=== PATIENT | male | born 1960 | race Caucasian/White ===

== ENCOUNTER → 2019-09-30 | Outpatient (CLI) | payer BC ==
--- NOTE | 2019-09-30 10:24 | MR ---
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 FINDINGS: There is abnormal signal along the intracanalicular internal auditory canal on the right ex tending to a minimal extracanalicular position measuring approximately 9 mm x 7 mm x 6 mm in cephalad to caudal dimension. Diffusion weighted images demonstrate no evidence of a recent infarct or other diffusion abnormality. There is no extra-axial fluid collection or significant white matter signal a bnormality. The ventricular system and cisternal spaces are normal in size and appearance. The brai n volume is age appropriate. Midline structures demonstrate essentially normal morphology, minimal inferior cerebellar tonsillar e ctopia noted. The craniocervical junction appears within normal limits. Post contrast images demons trates enhancement of the mass along the internal auditory canal on the right. The dural venous sinus es appear patent. The visualized sinuses are remarkable for mucoperiosteal thickening maxillary sinus es, ethmoid air cells, and the globes are intact. There are inflammatory changes present within the m astoid air cells on the left. IMPRESSION: Right-sided acoustic neuroma as described. Mild inflammatory changes mastoid air cells on the left, minimal sinus disease. Minimal inferior cerebellar tonsillar ectopia.
== END | disposition home or self-care (01) ==
LOC: RADMRIMAIN 08:37
PROVIDERS: ATTEND Otolaryngology
DX: D33.3 Benign neoplasm of cranial nerves (principal); H70.892 Other mastoiditis and related conditions, left ear; Q04.8 Other specified congenital malformations of brain; H91.91 Unspecified hearing loss, right ear
CPT/HCPCS: 70553; A9585

== ENCOUNTER → 2020-10-19 | Outpatient (CLI) | payer BC ==
--- NOTE | 2020-10-20 09:57 | US ---
EXAMINATION TYPE: US scrotum with doppler. Grayscale and color Doppler Duplex imaging performed of anali lamar scrotum. DATE OF EXAM: 10/19/2020 COMPARISON: NONE CLINICAL HISTORY: R36.1 Hematospermia. EXAM MEASUREMENTS: TESTICLES: Right Testicle: 4.3 x 1.9 x 3.5 cm Left Testicle: 3.8 x 2.1 x 3.3 cm EPIDIDYMIS HEAD: Right Epididymis: 0.7 x 0.7 cm Left Epididymis: 0.7 x 0.8 cm Doppler performed to assess for testicular vascularity; good bilateral color flow and waveforms are s een. There is no evidence of testicular torsion. Presence of hydroceles: small amount of fluid surrounding both testicles. Presence of varicoceles: Tubular structures posterior to left testicle that have increased flow with valsalva maneuver. IMPRESSION: 1. Small hydroceles and varicoceles are noted.
== END | disposition home or self-care (01) ==
LOC: RADUSWWP 16:40
PROVIDERS: ATTEND Family Medicine
DX: I86.1 Scrotal varices (principal); N43.3 Hydrocele, unspecified; R36.1 Hematospermia
CPT/HCPCS: 76870; 93975

== ENCOUNTER → 2021-11-23 | Outpatient (CLI) | payer BC ==
--- NOTE | 2021-11-24 07:46 | CT ---
EXAMINATION TYPE: CT urogram wo/w con DATE OF EXAM: 11/23/2021 COMPARISON: None HISTORY: hematuria CT DLP: 4417.8 mGycm CONTRAST: Performed and without and with IV Contrast, patient injected with 80cc mL of Isovue 370. CT Urography was performed with unenhanced followed by enhanced images of the kidneys, ureters and ur inary bladder. Delayed images were obtained. 3d reconstruction was perfromed at a separate work sta tion. FINDINGS: KIDNEYS/BLADDER: No hydronephrosis. No nephrolithiasis. No distinct renal mass. Urinary bladder gr ossly unremarkable. LUNG BASES-: No visible nodule. No infiltrate. Moderate sized fixed hiatal hernia noted. LIVER/GB: The gallbladder is surgically absent. No space occupying hepatic lesion. Biliary tree is of normal caliber. PANCREAS: No inflammation. No distinct mass. SPLEEN: No splenic enlargement. No lesion seen. ADRENALS: No nodule. No thickening. BOWEL: Normal appendix. Normal bowel caliber. No inflammation. GENITAL ORGANS: No gross abnormality. LYMPH NODES: No greater than 1cm abdominal or pelvic lymph nodes are appreciated. AORTA: No significant abnormality. OSSEOUS STRUCTURES: No significant abnormality is seen. OTHER: No significant additional abnormality is seen. IMPRESSION: 1. No significant abnormality to account for the patient's symptoms.
== END | disposition home or self-care (01) ==
LOC: RADCTMAIN 15:42
PROVIDERS: ATTEND Urology
DX: R31.0 Gross hematuria (principal)
CPT/HCPCS: 82565; 84520; 74178; 36415; 74400; Q9967

== ENCOUNTER 2022-03-26 08:12 | Observation (INO) | payer BC ==
[2022-03-26] MEDS ORDERED: SODIUM CHLORIDE 0.9% 1,000 ML IV STA (08:13)
[2022-03-26] MEDS ORDERED: SODIUM CHLORIDE 0.9% 500 ML 500 ML IV STA (08:13)
[2022-03-26] MEDS ORDERED: KETOROLAC 15 MG/ML 1 ML VIAL IVP STA (08:13)
[2022-03-26] MEDS ORDERED: HYDROmorphone 0.5 MG/0.5 ML SYRINGE IVP STA ×2 (08:13→08:57)
[2022-03-26] MEDS ORDERED: ONDANSETRON 4 MG/2 ML VIAL IVP STA (08:13)
[2022-03-26 08:54] LABS: Basophils % (A) 0 %; Eosinophils # (A) 0.2 k/uL (0-0.7); Eosinophils % (A) 3 %; HGB 16.1 gm/dL (13.0-17.5); Lymphocytes # (A) 1.2 k/uL (1.0-4.8); Lymphocytes % (A) 18 %; MCH 32.1 pg (25.0-35.0); MCHC 33.6 g/dL (31.0-37.0); MCV 95.4 fL (80.0-100.0); Mean Platelet Volume 7.6; Monocytes # (A) 0.2 k/uL (0-1.0); Monocytes % (A) 3 %; Neutrophils % (A) 74 %; Platelet Count 214 k/uL (150-450); RBC 5.03 m/uL (4.30-5.90); RDW 14.2 % (11.5-15.5); WBC 6.8 k/uL (3.8-10.6)
--- NOTE | 2022-03-26 08:57 | ED ---
General Adult HPI - General Stated complaint: poss kidney stones Time Seen by Provider: 03/26/22 08:13 Source: patient, RN notes reviewed Mode of arrival: ambulatory Limitations: no limitations - History of Present Illness Initial comments: 61-year-old male presents emergency Department chief complaint of severe right- sided abdominal pain. Patient was diagnosed with 6.9 mm kidney stone yesterday. Patient is unable pass a stone he's been taking [place] at home on alleviated wit h his pain. Patient's had minimal nausea no vomiting no dysuria no hematuria noted. No diarrhea no constipation. Patient states he had a history kidney stone of years ago. Patient states she's been taking all his medications as directed with no improvement of symptoms. - Related Data Home Medications Medication Instructions Recorded Confirmed Tamsulosin HCl [Flomax] 0.4 mg PO DAILY 05/01/14 09/11/16 Levothyroxine Sodium [Synthroid] 150 mcg PO DAILY 09/11/16 09/11/16 Losartan Potassium 100 mg PO DAILY 09/11/16 09/11/16 Omeprazole [PriLOSEC] 40 mg PO DAILY 09/11/16 09/11/16 Previous Rx's Medication Instructions Recorded Ciprofloxacin HCl [Cipro] 500 mg PO Q12HR #20 tablet 09/11/16 Allergies Allergy/AdvReac Type Severity Reaction Status Date / Time hydroxychloroquine sulfate Allergy Rash/Hives Verified 03/26/22 08:16 [From Plaquenil] Review of Systems ROS Statement: Those systems with pertinent positive or pertinent negative responses have been documented in the HPI. ROS Other: All systems not noted in ROS Statement are negative. Past Medical History Past Medical History: GERD/Reflux, Hypertension, Renal Disease, Thyroid Disorder Additional Past Medical History / Comment(s): sarcoidosis, kidney failure, kidney stones History of Any Multi-Drug Resistant Organisms: None Reported Past Surgical History: Appendectomy, Cholecystectomy, Hernia Repair Additional Past Surgical History / Comment(s): acl, Lasix surgery of the right eye Past Psychological History: No Psychological Hx Reported Smoking Status: Never smoker Past Alcohol Use History: Occasional Past Drug Use History: None Reported General Exam Limitations: no limitations General appearance: alert, in no apparent distress Head exam: Present: atraumatic, normocephalic, normal inspection Eye exam: Present: normal appearance, PERRL, EOMI. Absent: scleral icterus, conjunctival injection, periorbital swelling Respiratory exam: Present: normal lung sounds bilaterally. Absent: respiratory distress, wheezes, rales, rhonchi, stridor Cardiovascular Exam: Present: regular rate, normal rhythm, normal heart sounds. Absent: systolic murmur, diastolic murmur, rubs, gallop, clicks GI/Abdominal exam: Present: soft, tenderness (Mild right), normal bowel sounds. Absent: distended, guarding, rebound, rigid Back exam: Absent: CVA tenderness (R), CVA tenderness (L) Neurological exam: Present: alert Skin exam: Present: warm, dry, intact, normal color. Absent: rash Course Vital Signs 03/26/22 03/26/22 08:12 08:20 Temperature 97.1 F L Pulse Rate 80 Respiratory 18 Rate Blood Pressure 177/108 O2 Sat by Pulse 97 Oximetry Medical Decision Making - Medical Decision Making Patient was evaluated by urologist in the emergency department. Patient be taken to the OR for possible stent placement. - Lab Data Result diagrams: 03/26/22 08:44 03/26/22 08:55 Lab Results 03/26/22 03/26/22 Range/Units 08:44 08:55 WBC 6.8 (3.8-10.6) k/uL RBC 5.03 (4.30-5.90) m/uL Hgb 16.1 (13.0-17.5) gm/dL Hct 48.0 (39.0-53.0) % MCV 95.4 (80.0-100.0) fL MCH 32.1 (25.0-35.0) pg MCHC 33.6 (31.0-37.0) g/dL RDW 14.2 (11.5-15.5) % Plt Count 214 (150-450) k/uL MPV 7.6 Neutrophils % 74 % Lymphocytes % 18 % Monocytes % 3 % Eosinophils % 3 % Basophils % 0 % Neutrophils # 5.0 (1.3-7.7) k/uL Lymphocytes # 1.2 (1.0-4.8) k/uL Monocytes # 0.2 (0-1.0) k/uL Eosinophils # 0.2 (0-0.7) k/uL Basophils # 0.0 (0-0.2) k/uL Sodium 139 (137-145) mmol/L Potassium 4.5 (3.5-5.1) mmol/L Chloride 112 H (98-107) mmol/L Carbon Dioxide 21 L (22-30) mmol/L Anion Gap 6 mmol/L BUN 21 H (9-20) mg/dL Creatinine 1.63 H (0.66-1.25) mg/dL Est GFR (CKD-EPI)AfAm 51 (>60 ml/min/1.73 sqM) Est GFR (CKD-EPI)NonAf 45 (>60 ml/min/1.73 sqM) Glucose 143 H (74-99) mg/dL Calcium 8.6 (8.4-10.2) mg/dL Total Bilirubin 0.9 (0.2-1.3) mg/dL AST 31 (17-59) U/L ALT 41 (4-49) U/L Alkaline Phosphatase 69 (38-126) U/L Total Protein 6.4 (6.3-8.2) g/dL Albumin 3.8 (3.5-5.0) g/dL Disposition Clinical Impression: Ureteral calculus, right Disposition: ADMITTED IP TO THIS [facility] Condition: Stable Referrals: Mia Fulton MD [Primary Care Provider] - 1-2 days
[2022-03-26 09:27] LABS: Albumin 3.8 g/dL (3.5-5.0); Calcium 8.6 mg/dL (8.4-10.2); Potassium 4.5 mmol/L (3.5-5.1); Total Bilirubin 0.9 mg/dL (0.2-1.3); Total Protein 6.4 g/dL (6.3-8.2)
[2022-03-26] MEDS ORDERED: ONDANSETRON 4 MG/2 ML VIAL IVP PRN (09:35)
[2022-03-26] MEDS ORDERED: NALOXONE 0.4 MG/ML 1 ML VIAL IV PRN (09:35)
[2022-03-26] MEDS ORDERED: HYDROmorphone 0.5 MG/0.5 ML SYRINGE IVP PRN (09:35)
[2022-03-26 11:27] LABS: Appearance,Urine Clear (Clear); Bacteria,Urine Rare /hpf; Bilirubin,Urine Negative (Negative); Blood,Urine Moderate (Negative); Color,Urine Yellow; Glucose,Urine (UA) Negative (Negative); Ketones,Urine Negative (Negative); Leukocyte Esterase,Urine Negative (Negative); Mucus,Urine Rare /hpf; Nitrite,Urine Negative (Negative); Protein,Urine Negative (Negative); RBC,Urine 31 /hpf (0-5); Specific Gravity,Urine 1.013 (1.001-1.035); Urobilinogen,Urine <2.0 mg/dL (<2.0); WBC,Urine 1 /hpf (0-5)
--- NOTE | 2022-03-26 12:17 | P.GSHP ---
History of Present Illness H&P Date: 03/26/22 Chief Complaint: Right ureteral stone This is 61-year-old male presents to the hospital with a 6 mm right-sided distal stone, he initially presented to [facility] yesterday, but presented back to the hospital with intractable pain. He indicated his pain is associated with nausea, denies any vomiting. Denies any dysuria or gross hematuria. He did have stone in the past which did require surgical intervention. He does have history of CKD his creatinine yesterday was 1. 8 repeat today's 1.6. Denies any fevers or chills. - Constitutional Constitutional: Denies chills, Denies fever - Cardiovascular Cardiovascular: Denies chest pain, Denies shortness of breath - Respiratory Respiratory: Denies cough, Denies 7 - Gastrointestinal Gastrointestinal: Reports abdominal pain, Reports nausea, Denies vomiting - Genitourinary (Male) Genitourinary: Reports flank pain, Reports kidney stones, Denies dysuria, Denies hematuria - Musculoskeletal Musculoskeletal: Denies myalgias - Neurological Neurological: Denies numbness, Denies weakness Past Medical History Past Medical History: GERD/Reflux, Hypertension, Renal Disease, Thyroid Disorder Additional Past Medical History / Comment(s): sarcoidosis, kidney failure, kidney stones History of Any Multi-Drug Resistant Organisms: None Reported Past Surgical History: Appendectomy, Cholecystectomy, Hernia Repair Additional Past Surgical History / Comment(s): acl, Lasix surgery of the right eye Past Psychological History: No Psychological Hx Reported Smoking Status: Never smoker Past Alcohol Use History: Occasional Past Drug Use History: None Reported Medications and Allergies Home Medications Medication Instructions Recorded Confirmed Type Tamsulosin HCl [Flomax] 0.4 mg PO DAILY 05/01/14 09/11/16 History Ciprofloxacin HCl [Cipro] 500 mg PO Q12HR #20 tablet 09/11/16 Rx Levothyroxine Sodium [Synthroid] 150 mcg PO DAILY 09/11/16 09/11/16 History Losartan Potassium 100 mg PO DAILY 09/11/16 09/11/16 History Omeprazole [PriLOSEC] 40 mg PO DAILY 09/11/16 09/11/16 History Allergies Allergy/AdvReac Type Severity Reaction Status Date / Time hydroxychloroquine sulfate Allergy Rash/Hives Verified 03/26/22 08:16 [From Plaquenil] Surgical - Exam Vital Signs Pulse Resp BP Pulse Ox 80 18 177/108 97 03/26/22 08:12 03/26/22 08:12 03/26/22 08:12 03/26/22 08:12 - General no distress, moderate pain - Eyes normal ocular movement, no pale - ENT normal nares, normal mucosa - Respiratory normal expansion, normal respiratory effort - Abdomen Abdomen: soft, non tender - Psychiatric oriented to time, oriented to person, oriented to place Results - Labs 03/26/22 08:44 03/26/22 08:55 Abnormal Lab Results - Last 24 Hours (Table) 03/26/22 03/26/22 Range/Units 08:13 08:55 Chloride 112 H (98-107) mmol/L Carbon Dioxide 21 L (22-30) mmol/L BUN 21 H (9-20) mg/dL Creatinine 1.63 H (0.66-1.25) mg/dL Glucose 143 H (74-99) mg/dL Urine Blood Moderate H (Negative) Urine RBC 31 H (0-5) /hpf Urine Bacteria Rare H (None) /hpf Urine Mucus Rare H (None) /hpf Diabetes panel 03/26/22 Range/Units 08:55 Sodium 139 (137-145) mmol/L Potassium 4.5 (3.5-5.1) mmol/L Chloride 112 H (98-107) mmol/L Carbon Dioxide 21 L (22-30) mmol/L BUN 21 H (9-20) mg/dL Creatinine 1.63 H (0.66-1.25) mg/dL Glucose 143 H (74-99) mg/dL Calcium 8.6 (8.4-10.2) mg/dL AST 31 (17-59) U/L ALT 41 (4-49) U/L Alkaline Phosphatase 69 (38-126) U/L Total Protein 6.4 (6.3-8.2) g/dL Albumin 3.8 (3.5-5.0) g/dL Calcium panel 03/26/22 Range/Units 08:55 Calcium 8.6 (8.4-10.2) mg/dL Albumin 3.8 (3.5-5.0) g/dL Pituitary panel 03/26/22 Range/Units 08:55 Sodium 139 (137-145) mmol/L Potassium 4.5 (3.5-5.1) mmol/L Chloride 112 H (98-107) mmol/L Carbon Dioxide 21 L (22-30) mmol/L BUN 21 H (9-20) mg/dL Creatinine 1.63 H (0.66-1.25) mg/dL Glucose 143 H (74-99) mg/dL Calcium 8.6 (8.4-10.2) mg/dL Adrenal panel 03/26/22 Range/Units 08:55 Sodium 139 (137-145) mmol/L Potassium 4.5 (3.5-5.1) mmol/L Chloride 112 H (98-107) mmol/L Carbon Dioxide 21 L (22-30) mmol/L BUN 21 H (9-20) mg/dL Creatinine 1.63 H (0.66-1.25) mg/dL Glucose 143 H (74-99) mg/dL Calcium 8.6 (8.4-10.2) mg/dL Total Bilirubin 0.9 (0.2-1.3) mg/dL AST 31 (17-59) U/L ALT 41 (4-49) U/L Alkaline Phosphatase 69 (38-126) U/L Total Protein 6.4 (6.3-8.2) g/dL Albumin 3.8 (3.5-5.0) g/dL Assessment and Plan Assessment: 61-year-old male with history of 6 mm stone in the right distal ureter, this is a second presentation to the hospital for his stone. Underwent imaging at [facility] which I reviewed which showed evidence of a 6 mm right-sided distal stone with mild hydronephrosis. Discussed with him given this second presenta tion to the ER the option of doing a right-sided ureteroscopy with holmium laser lithotripsy. Discussed the risk of surgery includes but not limited to bleeding, infection, injury to the ureter. Discussed the potential need to use a stent. He understood all the risk and agreed to proceed -Or for right-sided ureteroscopy with holmium laser lithotripsy
[2022-03-26] MEDS: SODIUM CHLORIDE 0.9% 1,000 ML IV SCH (13:06)
[2022-03-26] MEDS ORDERED: SODIUM CHLORIDE 0.9% 1,000 ML IV ONE (14:47)
[2022-03-26] MEDS ORDERED: SUCCINYLCHOLINE CHLORIDE 100 MG/5 ML SYR IV ONE (15:02)
[2022-03-26] MEDS ORDERED: fentaNYL (PF) 50 MCG/ML 2 ML AMP ONE (15:02)
[2022-03-26] MEDS ORDERED: DEXAMETHASONE SOD PHOSPHATE 4 MG/ML 1 ML VIAL ONE (15:02)
[2022-03-26] MEDS ORDERED: SODIUM CHLORIDE 0.9% 100 ML with ceFAZolin 2 GM IV ONE ×2 (15:02)
[2022-03-26] MEDS ORDERED: ONDANSETRON 4 MG/2 ML VIAL ONE (15:02)
[2022-03-26] MEDS ORDERED: PROPOFOL 10 MG/ML 20 ML VIAL IV ONE (15:02)
[2022-03-26] MEDS ORDERED: HYDROmorphone 0.5 MG/0.5 ML SYRINGE IVP ONE ×2 (16:05→16:08)
--- NOTE | 2022-03-26 16:08 | P.OP ---
Date of Procedure: 03/26/22 Preoperative Diagnosis: Right sided ureteral stone Postoperative Diagnosis: Same Procedure(s) Performed: Cystoscopy, right-sided ureteroscopy, holmium laser lithotripsy, stone basketing and stent insertion Implants: 6-Bermudian by 26 cm stent in the right ureter, left on a string Anesthesia: MAURICIO Surgeon: Jovanny Woodard Estimated Blood Loss (ml): 5 Pathology: other (right ureteral stone) Condition: stable Disposition: PACU Indications for Procedure: 61-year-old male with history of 6 mm stone in the right distal ureter, this is a second presentation to the hospital for his stone. Underwent imaging at [facility] which I reviewed which showed evidence of a 6 mm right-sided distal stone with mild hydronephrosis. Discussed with him given this second presentation to the ER the option of doing a right-sided ureteroscopy with holmium laser lithotripsy. Discussed the risk of surgery includes but not limited to bleeding, infection, injury to the ureter. Discussed the potential need to use a stent. He understood all the risk and agreed to proceed Operative Findings: Right sided distal ureteral stone Description of Procedure: Patient brought to the operating room, general anesthesia was induced. He was prepped and draped in sterile fashion and placed in dorsal lithotomy position. Cystoscopy fitted with a 22-Bermudian sheath was inserted per urethra, cystoscopy was performed which showed no abnormality within the bladder. Of note patient had an enlarged prostate with significant medial lobe with intravesical extension. The right ureteral orifice was visualized and intubated with a sensor wire. Of note the right ureteral orifice was fairly narrowed, a fluoroscopy image was obtained which showed a radiopaque stone within the distal ureter. Next a 12 Fr ureteral balloon dilator was inserted over the wire and into the UVJ, the tip the balloon dilator was distal to the stone. Next the balloon dilator was inflated under fluoroscopy. Next the balloon dilator was removed with the wire in place. Next a semirigid ureteroscope was inserted through the urethra and advanced up the right ureteral orifice. Using the holmium laser the stone was fragmented into small fragments, the stone fragments was removed using the stone basket. Next the ureteroscope was advanced all the way up to the proximal ureter which showed no additional stones or injury to the ureter. Retrograde pyelogram was performed through scope which showed evidence of mild hydronephrosis but no filling defect within the kidney. Pullback ureteroscopy was performed which showed no injury to the ureter or any sizable fragments. Of note there was ureteral edema at the site of stone. As the ureteroscope was withdrawn a sensor wire was advanced through. Next a ureteral stent was passed over the wire, the proximal curl was visualized on fluoroscopy and the distal curl was visualized using the cystoscope. The stent was left on a string and taped to the patient penis. Patient tolerated procedure well was taken to recovery in stable condition
[2022-03-26] MEDS ORDERED: HYDROcodone/APAP 5-325MG 1 EACH TAB PO PRN (16:09)
--- NOTE | 2022-03-26 18:15 | FL ---
Operating room fluoroscopy. Fluoroscopy was provided in the operating room for insertion of a double-J ureteral stent. 3 spot german ms were obtained demonstrating ureteral stent in place. There was 21.1 seconds of fluoroscopic exposu re
[2022-03-26] MEDS ORDERED: AMITRIPTYLINE HCL 10 MG TAB PO SCH (21:00)
[2022-03-27] MEDS: SODIUM CHLORIDE 0.9% 1,000 ML IV SCH (00:06)
[2022-03-27] MEDS ORDERED: LEVOTHYROXINE 88 MCG TAB PO SCH (06:30)
[2022-03-27] MEDS ORDERED: PANTOPRAZOLE 40 MG TABLET PO SCH (07:30)
[2022-03-27 08:01] VITALS: BP 148/80; PULSE 93; RESP 16; TEMP 97.8
[2022-03-27] MEDS ORDERED: TAMSULOSIN 0.4 MG CAP.ER.24H PO SCH (09:00)
[2022-03-27] MEDS ORDERED: predniSONE 20 MG TAB PO SCH (09:00)
[2022-03-27] MEDS ORDERED: ONDANSETRON ODT 4 MG TAB PO SCH (09:00)
[2022-03-27] MEDS ORDERED: LOSARTAN 50 MG TAB PO SCH (09:00)
--- NOTE | 2022-03-27 11:49 | P.DS ---
Providers Date of admission: 03/26/22 09:41 Attending physician: Jovanny Woodard MD Primary care physician: [facility] Course: this is a 61 yo male with hx of right sided ureteral stone, he was admitted to the hospital secondary to pain. he underwent a right sided ureteroscopy with holmium laser, please see op note dated 03/26 for surgery detail. He was discharged home on POD #1, at time of discharge he was tolerating diet, ambulating an pain was controlled. He will f/u 1-2 weeks for stent removal. Patient Condition at Discharge: Stable Plan - Discharge Summary Discharge Rx Participant: No New Discharge Prescriptions: New Cephalexin [Keflex] 500 mg PO Q8HR #15 cap No Action Tamsulosin HCl [Flomax] 0.4 mg PO DAILY Losartan Potassium 100 mg PO DAILY Amitriptyline HCl [Elavil] 10 mg PO HS predniSONE [Deltasone] 40 mg PO DAILY Ondansetron Odt [Zofran Odt] 4 mg PO DAILY Levothyroxine Sodium [Synthroid] 175 mcg PO DAILY HYDROcodone/APAP 5-325MG [[place] 5-325] 1 tab PO Q8H PRN PRN Reason: Severe Pain Multivit-Min/FA/Lycopen/Lutein [Centrum Silver Tablet] 1 tab PO DAILY Aspirin EC [Ecotrin Low Dose] 81 mg PO DAILY Pantoprazole [Protonix] 40 mg PO DAILY Discharge Medication List Tamsulosin HCl [Flomax] 0.4 mg PO DAILY 05/01/14 [History] Losartan Potassium 100 mg PO DAILY 09/11/16 [History] Amitriptyline HCl [Elavil] 10 mg PO HS 03/26/22 [History] Aspirin EC [Ecotrin Low Dose] 81 mg PO DAILY 03/26/22 [History] Cephalexin [Keflex] 500 mg PO Q8HR #15 cap 03/26/22 [Rx] HYDROcodone/APAP 5-325MG [[place] 5-325] 1 tab PO Q8H PRN 03/26/22 [History] Levothyroxine Sodium [Synthroid] 175 mcg PO DAILY 03/26/22 [History] Multivit-Min/FA/Lycopen/Lutein [[place] Silver Tablet] 1 tab PO DAILY 03/26/22 [History] Ondansetron Odt [Zofran Odt] 4 mg PO DAILY 03/26/22 [History] Pantoprazole [Protonix] 40 mg PO DAILY 03/26/22 [History] predniSONE [Deltasone] 40 mg PO DAILY 03/26/22 [History] Follow up Appointment(s)/Referral(s): Jovanny Woodard MD [STAFF PHYSICIAN] - 04/07/22 9:40 am Mia Fulton MD [Primary Care Provider] - 1-2 days Discharge Disposition: HOME SELF-CARE
== END 2022-03-27 12:15 | disposition home or self-care (01) ==
LOC: EC 08:12 → 6NMEDSUR 09:41
PROVIDERS: ADMIT Urology; ATTEND Urology
DX: N20.1 Calculus of ureter (principal); I12.9 Hypertensive chronic kidney disease with stage 1 through stage 4 chronic kidney disease, or unspecified chronic kidney disease; N18.2 Chronic kidney disease, stage 2 (mild); K21.9 Gastro-esophageal reflux disease without esophagitis; I10 Essential (primary) hypertension; E07.9 Disorder of thyroid, unspecified; D86.9 Sarcoidosis, unspecified; N40.0 Benign prostatic hyperplasia without lower urinary tract symptoms; Z87.442 Personal history of urinary calculi; Z90.49 Acquired absence of other specified parts of digestive tract; Z98.890 Other specified postprocedural states; Z79.890 Hormone replacement therapy; Z79.899 Other long term (current) drug therapy; Z79.52 Long term (current) use of systemic steroids; Z88.8 Allergy status to other drugs, medicaments and biological substances
CPT/HCPCS: 96376; 96361; 96374; 96375; 99284; 36415; 80053; 85025; 81001; 82365; 52356; G0378 ×2; C2625; C1894; C1758; C1769; J1100; J0690; J2405; J0696; J3010; J1885; J0330; J2704; J7512; J1170

== ENCOUNTER 2023-03-09 08:17 | Day surgery (SDC) | payer BC ==
[~2023-03-09 08:17] MED LIST: LACTATED RINGERS 1,000 ML IV SCH; LIDOCAINE 1% (10MG/ML) FOR IV START INTRADERMA PRN
[2023-03-09 08:40] VITALS: RESP 16; TEMP 97.1
[2023-03-09 08:56] LABS: Glucose,Whole Blood 103 mg/dL (70-110)
[2023-03-09] MEDS ORDERED: LIDOCAINE 2% INJ 20 MG/ML (2 ML VIAL) ONE (09:29)
[2023-03-09] MEDS ORDERED: PROPOFOL 10 MG/ML 20 ML VIAL IV ONE (09:29)
--- NOTE | 2023-03-09 09:59 | P.PCN ---
Date of Procedure: 03/09/23 Procedure(s) Performed: Brief history: Patient is a pleasant 62-year-old white male scheduled for an elective upper endoscopy as well as colonoscopy as a part of evaluation of GERD and change in bowel habits and Procedure performed: Esophagogastroduodenoscopy with biopsy Colonoscopy with biopsy Preoperative diagnosis: GERD Change in bowel habits Anesthesia: MAC Procedure: After informed consent was obtained from the patient was brought into the endoscopy unit and IV sedation was administered by anesthesia under continuous monitoring. Initially upper endoscopy was done. The Olympus GF 160 video endoscope was inserted inserted into the mouth and esophagus intubated without any difficulty and was gradually advanced into the stomach and duodenum and carefully examined. The bulb and second part of the duodenum appeared normal. The scope was then withdrawn into the stomach adequately insufflated with air and upon careful examination the antrum mild diffuse gastritis and biopsies were done from this area. Mucosa of the body, cardia and fundus appeared normal. The scope was then withdrawn into the esophagus. Moderate size hiatal hernia noted. The GE junction was located at 35 cm to the incisors. It appeared regular with no erythema erosions or ulcerations. Rest of the esop hagus appeared normal. Patient tolerated the procedure well. At this time the patient continued to remain sedation. Initial digital rectal examination was normal. Olympus CF 160 video colonoscope was then inserted into the rectum and gradually advanced to the cecum without any difficulty. Careful examination was performed as the scope was gradually being withdrawn. The prep was excellent. The cecum, we normal. Ascending colon there was a 5 mm polyp removed by cold biopsy. Rest of the ascending colon, transverse colon, descending colon, sigmoid colon and rectum appeared normal. Retroflexion was performed in the rectum and no lesions were noted. Patient tolerated the procedure well. Impression: 1. Upper endoscopy revealed moderate size hiatal hernia and mild antral gastritis 2. Colonoscopy revealed 5 mm ascending colon polyp status post cold biopsy and the rest of the colon appeared normal Recommendations: Findings of this examination were discussed with the patient as well as his family. He was advised to continue with Protonix 40 mg daily but change to half hour before dinnertime and follow antireflux measures. If the biopsy of the colon polyp reveals adenoma he can have a repeat colonoscopy in 5 years.
[2023-03-09 10:07] VITALS: PULSE 69
[2023-03-09 10:18] VITALS: BP 131/89
== END 2023-03-09 10:33 | disposition home or self-care (01) ==
LOC: ORWHC2ENDO 08:17
PROVIDERS: ATTEND Internal Medicine Gastroenterology
DX: D12.2 Benign neoplasm of ascending colon (principal); K29.50 Unspecified chronic gastritis without bleeding; K44.9 Diaphragmatic hernia without obstruction or gangrene; K31.7 Polyp of stomach and duodenum; I10 Essential (primary) hypertension; E78.5 Hyperlipidemia, unspecified; Z79.899 Other long term (current) drug therapy
CPT/HCPCS: 88305; 45380; 43239; J2704; J2001

== ENCOUNTER → 2023-08-16 | Outpatient (CLI) | payer BC | END | disposition home or self-care (01) | LOC: LABWHC1 09:27 | PROVIDERS: ATTEND Internal Medicine Endocrinology, Diabetes & Metabolism | DX: E03.8 Other specified hypothyroidism (principal) | CPT/HCPCS: 36415; 84443 ==

== ENCOUNTER → 2025-06-05 | Outpatient (CLI) | payer MEDICARE ==
[2025-06-05 15:27] LABS: Basophils # (A) 0.03 X 10*3/uL (0.00-0.10); Basophils % (A) 0.4 %; Eosinophils # (A) 0.27 X 10*3/uL (0.04-0.35); Eosinophils % (A) 3.8 %; HCT 39.9 % (39.6-50.0); HGB 12.9 g/dL (13.0-17.0); Immature Grans, Automated 0.40 %; Lymphocytes # (A) 1.01 X 10*3/uL (0.90-5.00); Lymphocytes % (A) 14.1 %; MCH 29.8 pg (27.0-32.0); MCHC 32.3 g/dL (32.0-37.0); MCV 92.1 FL (80.0-97.0); Monocytes # (A) 0.55 X 10*3/uL (0.20-1.00); Monocytes % (A) 7.7 %; NRBC Per 100 WBC 0 X 10*3/uL (0.00-0.01); Neutrophils # (A) 5.25 X 10*3/uL (1.80-7.70); Neutrophils % (A) 73.6 %; Platelet Count 344 X 10*3/uL (140-440); RBC 4.33 X 10*6/uL (4.40-5.60); RDW 14.7 % (11.5-14.5); WBC 7.14 X 10*3/uL (4.50-10.00)
[2025-06-05 15:48] LABS: ALT 19 U/L (10-49); AST 17 U/L (14-35); Anion Gap 11.40 mmol/L (4.00-12.00); BUN/Creat Ratio 9.08 Ratio (12.00-20.00); Blood Urea Nitrogen 11.8 mg/dL (9.0-27.0); Calcium 9.2 mg/dL (8.7-10.3); Carbon Dioxide 23.6 mmol/L (21.6-31.8); Chloride 110 mmol/L (96-109); Glucose 109 mg/dL (70-110); Potassium 4.0 mmol/L (3.5-5.5); Sodium 145 mmol/L (135-145)
== END | disposition home or self-care (01) ==
LOC: LABWHC1 08:58
PROVIDERS: ATTEND Internal Medicine Rheumatology
DX: D86.9 Sarcoidosis, unspecified (principal); M34.1 CR(E)ST syndrome; Z79.631 Long term (current) use of antimetabolite agent
CPT/HCPCS: 36415; 80048; 84450; 84460; 85025; 85652; 86140

== ENCOUNTER → 2025-06-09 | Outpatient (CLI) | payer MEDICARE ==
--- NOTE | 2025-06-09 09:48 | XR ---
EXAMINATION TYPE: XR chest 2V DATE OF EXAM: 06/09/2025 9:24 AM COMPARISON: None CLINICAL INDICATION: Male, 64 years old with history of D86.9 SARCOIDOSIS R05.9 COUGH; [facility] TECHNIQUE: XR chest 2V Frontal and lateral views of the chest. FINDINGS: Lungs/Pleura: There is no evidence of pleural effusion, focal consolidation, or pneumothorax. Pulmonary vascularity: Unremarkable. Heart/mediastinum: Cardiomediastinal silhouette is unremarkable. Musculoskeletal: No acute osseous pathology. Other findings: None IMPRESSION: No acute cardiopulmonary disease/process. [facility], , 06/09/2025 9:46 AM
== END | disposition home or self-care (01) ==
LOC: RADXRMAIN 09:11
PROVIDERS: ATTEND Internal Medicine Rheumatology
DX: R05.9 Cough, unspecified (principal); D86.9 Sarcoidosis, unspecified; M34.1 CR(E)ST syndrome; Z79.631 Long term (current) use of antimetabolite agent
CPT/HCPCS: 71046